=== PATIENT | male | born 1995 | race Caucasian/White ===

== ENCOUNTER 2021-07-16 07:50 | Emergency (ER) | payer MEDICAID ==
[~2021-07-16] VITALS: Ht 175.3 cm; Wt 108.0 kg
[2021-07-16] MEDS ORDERED: KETOROLAC 15MG/ML VIAL IV ONE (08:15)
[2021-07-16] MEDS ORDERED: SODIUM CHLORIDE 0.9% 1,000 ML IV ONE (08:15)
[2021-07-16 08:38] LABS: BASOPHILS % 0.7 % (0.0-2.0); EOSINOPHILS % 1.5 % (0.0-5.0); HEMATOCRIT. 45.4 % (42.0-52.0); HEMOGLOBIN. 15.2 g/dL (14.0-18.0); MEAN CORPUSCULAR HEMOGLOBIN 29.4 pg (28.0-32.0); MEAN CORPUSCULAR VOLUME 87.8 fL (80.0-94.0); NEUTROPHILS % 73.8 % (40.0-76.0); PLATELET 552 x1000/uL (130-400); RED BLOOD CELL COUNT 5.17 mill/uL (4.7-6.1); RED CELL DISTRIBUTION WIDTH 13.5 % (11.6-14.6)
[2021-07-16 09:13] VITALS: BP 163/92
[2021-07-16 09:55] LABS: CHLORIDE 107 mEq/L (98-107)
[2021-07-16] MEDS ORDERED: IOHEXOL-300 100 ML BOTTLE ONE (10:25)
[2021-07-16] MEDS ORDERED: CLIN-116 MT (11:00)
[2021-07-16] MEDS ORDERED: IBUP-2029 MT (11:00)
[2021-07-16] MEDS ORDERED: CLINDAMYCIN HCL 150MG CAPSULE PO NR (11:00)
== END 2021-07-16 11:53 | disposition home or self-care (01) ==
LOC: ER 07:50
DX: K05.6 Periodontal disease, unspecified (principal); R51.9 Headache, unspecified
CPT/HCPCS: 36415; 70487; 80048; 85025; 96361; 96374; 99285; J1885; J7030; Q9967

== ENCOUNTER 2022-10-09 14:53 | Emergency (ER) | payer MEDICAID ==
[~2022-10-09] VITALS: Ht 180.3 cm; Wt 75.0 kg
[~2022-10-09 14:53] MED LIST: CLIN-116 MT; IBUP-2029 MT
[2022-10-09 14:56] VITALS: BP 148/76
[2022-10-09] MEDS ORDERED: ONDANSETRON HCL 4MG/2ML INJ IV ONE (16:30)
[2022-10-09] MEDS ORDERED: TETANUS, DIPHTHERIA, PERTUSSIS VAC/PF 0.5ML (>10YR OLD) IM ONE (16:30)
[2022-10-09] MEDS ORDERED: SODIUM CHLORIDE 0.9% 1,000 ML IV ONE (16:30)
[2022-10-09 16:39] LABS: INR 0.9
[2022-10-09 16:41] LABS: CHLORIDE 109 mEq/L (98-107)
[2022-10-09 16:50] LABS: ETHANOL BLOOD < 10 mg/dL
[2022-10-09 17:13] LABS: BASOPHILS % 0.7 % (0.0-2.0); EOSINOPHILS % 1.7 % (0.0-5.0); HEMOGLOBIN. 13.7 g/dL (14.0-18.0); LYMPHOCYTES % 16.2 % (20.0-50.0); MEAN CORPUSCULAR HEMOGLOBIN 28.7 pg (28.0-32.0); MEAN CORPUSCULAR VOLUME 85.4 fL (80.0-94.0); MEAN PLATELET VOLUME 6.7 fl (7.4-10.4); MONOCYTES % 5.8 % (2.0-8.0); NEUTROPHILS % 75.6 % (40.0-76.0); PLATELET 481 x1000/uL (130-400); RED CELL DISTRIBUTION WIDTH 15.7 % (11.6-14.6)
[2022-10-09] MEDS ORDERED: IOHEXOL-350 100 ML BOTTLE ONE (20:37)
== END 2022-10-09 19:43 | disposition home or self-care (01) ==
LOC: ER 14:59
DX: S01.01XA Laceration without foreign body of scalp, initial encounter (principal); S41.011A Laceration without foreign body of right shoulder, initial encounter; Y08.89XA Assault by other specified means, initial encounter; Y93.89 Activity, other specified; Y92.89 Other specified places as the place of occurrence of the external cause; Y99.8 Other external cause status; Z23 Encounter for immunization
CPT/HCPCS: 36415; 70450; 71045; 71275; 80053; 80320; 85025; 85610; 86850; 86900; 86901; 90471; 90715; 96374; 99285; J2405; J7030; Q9967; Z7610; G0480